=== PATIENT | female | born 1935 | race Caucasian/White ===

== ENCOUNTER → 2017-08-10 | Outpatient (CLI) | payer MEDICARE, OTHER ==
[~2017-08-10] MED LIST: ACET-822 PO; AMLO5TAB2 PO; ATEN100T7 PO; B COTAB PO; BETA0.1O9 TOPICAL; BIOT10TA PO; CLON0.2T PO; CLON0.5T PO; DOCU100T9 PO; ECASA81 PO; GABA300C5 PO; HYDR-3133 PO; HYDR-3799 PO; LACTCAP8 PO; LEVO75TA3 PO; MAGN250T11 PO; MECL12.574 PO; MELA5 PO; MIRA0.25 PO; MULT1TAB61 PO; MUPI2OIN TOPICAL; OLME1TAB PO; PARO20TA2 PO; PROB1CHW4 CHEW; RANI150T PO; SIMV20TA PO; TRAM100T19 PO; TRAM50TA PO; VITA100064 PO; ZOFR4TAB PO
[2017-08-10 10:15] LABS: AUTOMATED NEUTROPHIL # 3.9 TH/MM3 (1.8-7.7); BASOPHIL # 0.1 TH/MM3 (0-0.2); BASOPHIL % 1.1 % (0.0-2.0); EOSINOPHIL # 0.3 TH/MM3 (0-0.4); EOSINOPHIL % 4.1 % (0.0-4.0); HEMATOCRIT 35.1 % (35.0-46.0); HEMOGLOBIN 11.9 GM/DL (11.6-15.3); LYMPH % 24.7 % (9.0-44.0); LYMPHOCYTE # 1.6 TH/MM3 (1.0-4.8); MEAN CELL VOLUME 96.3 FL (80.0-100.0); MEAN CORPUSCULAR HEMOGLOBIN 32.7 PG (27.0-34.0); MEAN PLATELET VOLUME 7.3 FL (7.0-11.0); MONOCYTE # 0.7 TH/MM3 (0-0.9); NEUT % 59.1 % (16.0-70.0); PLATELET COUNT 388 TH/MM3 (150-450); RED BLOOD COUNT 3.65 MIL/MM3 (4.00-5.30); WHITE BLOOD COUNT 6.6 TH/MM3 (4.0-11.0)
[2017-08-10 10:18] LABS: BILIRUBIN, URINE NEG (NEG); BLOOD, URINE NEG (NEG); GLUCOSE,URINE NEG (NEG); KETONE, URINE NEG (NEG); NITRITE,URINE NEG (NEG); PH, URINE 7.5 (5.0-8.5); URINE COLOR YELLOW (YELLW/STRAW); URINE LEUKOCYTE ESTERASE NEG (NEG)
[2017-08-10 10:37] LABS: ALBUMIN 3.6 GM/DL (3.4-5.0); ALT (GPT) 22 U/L (10-53); AST (GOT) 24 U/L (15-37); BICARBONATE 28.5 MEQ/L (21.0-32.0); BLOOD UREA NITROGEN 19 MG/DL (7-18); CALCIUM 9.3 MG/DL (8.5-10.1); CHLORIDE 102 MEQ/L (98-107); GLOMERULAR FILTRATION RATE 39 ML/MIN (>89); GLUCOSE,FASTING 111 MG/DL (74-99); SODIUM (NA) 138 MEQ/L (136-145)
[2017-08-10 10:40] LABS: ALKALINE PHOSPHATASE 70 U/L (45-117); TOTAL BILIRUBIN ADULT 0.4 MG/DL (0.2-1.0); TOTAL PROTEIN 7.3 GM/DL (6.4-8.2)
--- NOTE | 2017-08-10 11:24 | RADRPT ---
EXAM DATE/TIME: 08/10/2017 10:45 [place] COMPARISON: No previous studies available for comparison. INDICATIONS : Evaluate for pneumonia, pneumothorax, and communicable disease. Pre op for rectal surgery. MEDICAL HISTORY : Hypertension. SURGICAL HISTORY : Heart Catheterization. ENCOUNTER: Initial ACUITY: 1 day PAIN SCORE: 0/10 LOCATION: Bilateral chest FINDINGS: PA and lateral views of the chest demonstrate the lungs to be symmetrically aerated without evidence of mass, infiltrate or effusion. There multiple calcified granulomas in both lung [place]. The cardio mediastinal contours are unremarkable. Osseous structures are intact. CONCLUSION: No acute intrathoracic disease. Evidence of previous granulomatous disease. Malik Fofana MD on August 10, 2017 at 11:21 Board Certified Radiologist. This report was verified electronically.
== END ==
LOC: CPRE 09:42 → EDUNIT# 10:00
PROVIDERS: ATTEND Colon & Rectal Surgery
DX: Z01.812 Encounter for preprocedural laboratory examination (principal); Z01.811 Encounter for preprocedural respiratory examination; K62.3 Rectal prolapse
CPT/HCPCS: 36415; 71046; 80053; 81001; 85025; 85610; 85730

== ENCOUNTER → 2017-08-14 | Outpatient (CLI) | payer MEDICARE, OTHER ==
--- NOTE | 2017-08-15 16:16 | EKG ---
Date Performed: 08/14/2017 Time Performed: 12:35:08 PTAGE: 82 years EKG: SINUS BRADYCARDIA WITH SINUS ARRHYTHMIA LOW QRS VOLTAGE IN PRECORDIAL LEADS BORDERLINE ECG NO PREVIOUS TRACING DOCTOR: Leonard Newman Interpretating Date/Time 08/15/2017 16:11:46
== END ==
LOC: CPRE 12:26
PROVIDERS: ATTEND Colon & Rectal Surgery
DX: Z01.810 Encounter for preprocedural cardiovascular examination (principal); K62.3 Rectal prolapse
CPT/HCPCS: 93005

== ENCOUNTER 2017-08-17 11:01 | Inpatient (IN) | payer MEDICARE, OTHER ==
[~2017-08-17] VITALS: Ht 152.4 cm; Wt 68.7 kg
[2017-08-17] MEDS ORDERED: GLYCOPYRROLATE 1 MG/5 ML SYRINGE IV PUSH ONE (12:00)
[2017-08-17] MEDS ORDERED: ONDANSETRON HCL 4 MG/2 ML VIAL IV ONE (12:00)
[2017-08-17] MEDS ORDERED: NORMOSOL R INJ 1,000 ML IV ONE (12:00)
[2017-08-17] MEDS ORDERED: NEOSTIGMINE 5 MG/5 ML SYRINGE IV PUSH ONE (12:00)
[2017-08-17] MEDS ORDERED: DEXAMETHASONE SOD PHOS 4 MG/ML VIAL IV ONE (12:00)
[2017-08-17] MEDS ORDERED: ROCURONIUM INJ 50 MG/5 ML SYRINGE IV PUSH ONE (12:00)
[2017-08-17] MEDS ORDERED: LIDOCAINE HCL 1% PF 5 ML SYRINGE OTHER ONE (12:00)
[2017-08-17] MEDS ORDERED: PHENYLEPHRINE HCL 10 MG/ML VIAL IV ONE (12:00)
[2017-08-17] MEDS ORDERED: hydrALAZINE HCL 20 MG/ML VIAL IV ONE (12:00)
[2017-08-17] MEDS ORDERED: PROPOFOL 200 MG/20 ML AMP IV ONE (12:00)
[2017-08-17] MEDS ORDERED: ePHEDrine/NS 25 MG/5 ML SYRINGE IV ONE (12:00)
[2017-08-17] MEDS ORDERED: PHENYLEPH/NS 1000 MCG/10 ML SYR IV ONE (12:00)
[2017-08-17] MEDS ORDERED: CHLORHEXIDINE GLUCONATE 2 % 1 PACK (2 CLOTHS) TOPICAL PRN (13:00)
[2017-08-17] MEDS ORDERED: LACTATED RINGER'S 1000 ML IV PRN (13:00)
[2017-08-17] MEDS ORDERED: METRONIDAZOLE 500 MG/100 ML ISONTONIC SOLN IV SCH (13:00)
[2017-08-17] MEDS ORDERED: SODIUM CHLORID 0.9% 500 ML IV PRN (13:00)
[2017-08-17] MEDS ORDERED: METOPROLOL TARTRATE 25 MG TAB PO PRN (13:00)
[2017-08-17] MEDS ORDERED: ceFAZolin 1,000 MG/NS 100 ML IV SCH ×2 (13:00)
[2017-08-17] MEDS ORDERED: POVIDONE IODINE 5% (ANTISEPSIS KIT) 4 APPLICATIONS EACH NARE PRN (13:00)
[2017-08-17] MEDS ORDERED: DEXT 5%-NACL 0.9% 1000 ML INJ 1,000 ML IV SCH (13:00)
[2017-08-17] MEDS ORDERED: ACETAMINOPHEN 1000 MG/100 ML 100 ML IV ONE (16:03)
[2017-08-17] MEDS ORDERED: SUGAMMADEX SODIUM 200 MG/2 ML VIAL IV PUSH ONE (16:04)
[2017-08-17] MEDS ORDERED: HYDROmorphone HCL PF 2 MG/ML VIAL ONE (16:04)
[2017-08-17] MEDS ORDERED: ACETAMINOPHEN/HYDROcodone 325 MG/5 MG TAB PO PRN ×2 (18:30)
[2017-08-17] MEDS ORDERED: ZOLPIDEM TARTRATE 5 MG TAB PO PRN (18:30)
[2017-08-17] MEDS ORDERED: Post-op Orders (for Pharmacy) XX ONE (18:30)
[2017-08-17] MEDS ORDERED: MORPHINE SULFATE 30 MG/30 ML PCA IV SCH (18:30)
[2017-08-17] MEDS ORDERED: ACETAMINOPHEN 325 MG TAB PO PRN (18:30)
[2017-08-17] MEDS ORDERED: BENZOCAINE 6 MG/MENTHOL 10 MG LOZENGE BUCCAL PRN (18:30)
[2017-08-17] MEDS ORDERED: BUPIVACAINE HCL PF 0.5% 30 ML VIAL NB SCH (18:30)
[2017-08-17] MEDS ORDERED: NALOXONE HCL 0.4 MG/ML AMP IV PUSH PRN (18:30)
[2017-08-17] MEDS ORDERED: KETOROLAC TROMETHAMINE 30 MG/ML (IVP) VIAL IVP PRN (18:30)
[2017-08-17] MEDS ORDERED: POTASSIUM CHLOR 20 MEQ PREMIX 100 ML IV PRN (18:30)
[2017-08-17] MEDS ORDERED: *ONDANSETRON 4 MG VIAL PERIprocedural Use ONLY ONE (18:36)
[2017-08-17] MEDS ORDERED: *morphine SULFATE 8 MG/ML PERIprocedure ONLY ONE ×2 (18:37→18:44)
[2017-08-17] MEDS ORDERED: LORazepam 2 MG/ML VIAL ONE (18:53)
[2017-08-17] MEDS ORDERED: *MEPERIDINE 25 MG INJ VIAL PERIprocedural Use ONLY ONE (18:56)
[2017-08-17] MEDS ORDERED: LORazepam 2 MG/ML VIAL IV ONE (19:00)
--- NOTE | 2017-08-17 19:02 | MP ---
cc: Colt Montemayor MD DATE OF OPERATION: PREOPERATIVE DIAGNOSIS: Full rectal prolapse. POSTOPERATIVE DIAGNOSIS: Full rectal prolapse. PROCEDURE: Abdominal proctopexy. ANESTHESIA: General endotracheal. SURGEON: Colt Montemayor MD TEAM PHYSICIAN: Jadiel Urban MD ESTIMATED BLOOD LOSS: 150 mL OPERATIVE FINDINGS: This patient was found several weeks ago to have an acute onset of rectal prolapse, which was full. It was able to be reduced, but it continually prolapse and for this reason, repair was recommended. Discussion was had with the patient regarding type of repair and we decided on abdominal proctopexy as we felt it would give her the best outcome. At surgery, abdominal proctopexy was done. She underwent a preoperative colonoscopy on the day prior to surgery, which was normal. OPERATIVE TECHNIQUE: The patient was placed on the table in the supine position. Once adequate general endotracheal anesthesia, the legs were placed in the perineal lithotomy position and the abdomen and perineum were prepped and draped in usual manner. A midline incision was made from the pubis to just above the umbilicus and carried down through the linea alba, and the peritoneal cavity was entered with the above-mentioned findings. Our attention was turned to the sigmoid colon, and it was mobilized along its peritoneal reflection and then, our attention was turned to the lateral pelvic peritoneum, which was incised bilaterally, and then the retrorectal space was entered and the rectum was mobilized posteriorly down to the tip of the coccyx and the pelvic floor. Laterally, the rectum was mobilized as well and the lateral stalks were mobilized. Anteriorly, the cul-de-sac peritoneum was divided, but the cul-de-sac was not entered. The patient has had a previous hysterectomy. Once the rectum was fully mobilized, 0 Prolene sutures were placed in the lateral stalks and sutured to the sacral promontory being careful to stay as wide as possible and the lateral stalks so as not to pinch the rectum upon tying these sutures. Attention was first turned to the right and left sides lower and the 2-0 Prolenes were placed and then the upper 2-0 Prolenes were placed. We tied down the right side first and there was some pinching of the rectum, and the anterior peritoneum over the rectum was incised sharply freeing this up. The left side lower Prolene suture was removed because it seemed to impinge on the rectum too much and the upper one was then tied and all 3 of these sutures were in good position and preventing prolapse. It was felt that that was certainly adequate. Because of the oozing in the retrorectal space and after thorough irrigation, a #10 flat Daniel drain was placed in the pelvis in the retrorectal space and brought out through a separate stab wound in the right lower quadrant. Once the procedure was completed, the abdominal cavity and pelvis, especially, were irrigated with a liter of saline solution, aspirated dry. The bowels were replaced in the abdominal cavity in an food technician manner and then the abdominal cavity was closed in layers using a double-stranded #1 PDS for the midline, linea alba, closing the fascia. Once this was done, the subcutaneous tissue was irrigated thoroughly with saline solution, aspirated dry and the skin was closed with running 3-0 Vicryl subcuticular suture and a dressing was applied. Sponge, needle and instrument counts were reported as correct. Estimated blood loss was 150 mL. The patient tolerated the procedure well and left the operating room in good condition. MD BÁRBARA Maxwell/ANDRA , 06:37 PM , 07:01 PM
[2017-08-17] MEDS ORDERED: LORazepam 2 MG/ML VIAL IV PRN (19:30)
[2017-08-17] MEDS: D5-LR + KCL 20 MEQ INJ 1,000 ML IV SCH (19:45)
[2017-08-17] MEDS ORDERED: DO NOT ADM ANY ANTICOAGULANT DRUGS PRN (20:30)
[2017-08-17 20:39] LABS: AUTOMATED NEUTROPHIL # 13.8 TH/MM3 (1.8-7.7); BASOPHIL # 0.1 TH/MM3 (0-0.2); BASOPHIL % 0.4 % (0.0-2.0); EOSINOPHIL % 0.1 % (0.0-4.0); HEMATOCRIT 31.9 % (35.0-46.0); HEMOGLOBIN 10.9 GM/DL (11.6-15.3); LYMPH % 8.1 % (9.0-44.0); LYMPHOCYTE # 1.3 TH/MM3 (1.0-4.8); MEAN CELL VOLUME 93.9 FL (80.0-100.0); MEAN CORPUSCULAR HGB CONC 34.1 % (32.0-36.0); MEAN PLATELET VOLUME 7.4 FL (7.0-11.0); MONOCYTE # 0.8 TH/MM3 (0-0.9); NEUT % 86.4 % (16.0-70.0); PLATELET COUNT 379 TH/MM3 (150-450); RED BLOOD COUNT 3.39 MIL/MM3 (4.00-5.30); RED CELL DISTRIBUTION WIDTH 11.9 % (11.6-17.2); WHITE BLOOD COUNT 15.9 TH/MM3 (4.0-11.0)
[2017-08-17] MEDS: PARoxetine HCL 20 MG TAB PO SCH (21:00)
[2017-08-17] MEDS: cloNIDine HCL 0.2 MG TAB PO SCH (21:00)
[2017-08-17] MEDS: PRAMIPEXOLE DIHYDROCHLORIDE 0.25 MG TAB PO SCH (21:00)
[2017-08-17] MEDS: FUROSEMIDE 20 MG/2 ML VIAL IV PUSH SCH (21:00)
[2017-08-17 21:11] LABS: BICARBONATE 22.9 MEQ/L (21.0-32.0); CALCIUM 8.3 MG/DL (8.5-10.1); CREATININE 1.23 MG/DL (0.50-1.00)
[2017-08-17 21:19] VITALS: BP 94/39; PULSE 76; RESP 14; TEMP 98.1; O2SAT 96
[2017-08-17 21:30] VITALS: BP 93/46; PULSE 65; RESP 14; TEMP 98.7; O2SAT 93
[2017-08-17 21:31] VITALS: PULSE 73
[2017-08-17] MEDS: PCA - TOTAL MG MORPHINE DELIVERED PER SHIFT SCH (22:00)
[2017-08-17 23:00] VITALS: O2SAT 96
[2017-08-18] VITALS (9 sets, daily range): BP systolic 93–153; BP diastolic 49–71; PULSE 60–76; RESP 16–20; TEMP 97.9–98.8; O2SAT 92–97
[2017-08-18] MEDS: D5-LR + KCL 20 MEQ INJ 1,000 ML IV SCH ×3 (00:59→15:25)
[2017-08-18] MEDS: metroNIDAZOLE 500 MG INJ 100 ML IV SCH ×3 (04:43→15:24)
[2017-08-18] MEDS: METOCLOPRAMIDE HCL 10 MG/2 ML VIAL IVS SCH ×4 (04:43→18:26)
[2017-08-18] MEDS: PCA - TOTAL MG MORPHINE DELIVERED PER SHIFT SCH ×3 (05:04→22:00)
[2017-08-18] MEDS: LEVOTHYROXINE SODIUM 75 MCG TAB PO SCH (06:30)
[2017-08-18 06:54] LABS: BASOPHIL % 0.1 % (0.0-2.0); HEMATOCRIT 30.9 % (35.0-46.0); HEMOGLOBIN 10.4 GM/DL (11.6-15.3); LYMPH % 2.7 % (9.0-44.0); LYMPHOCYTE # 0.3 TH/MM3 (1.0-4.8); MEAN CELL VOLUME 96.6 FL (80.0-100.0); MEAN CORPUSCULAR HEMOGLOBIN 32.5 PG (27.0-34.0); MEAN CORPUSCULAR HGB CONC 33.6 % (32.0-36.0); MEAN PLATELET VOLUME 7.6 FL (7.0-11.0); MONO % 4.7 % (0.0-8.0); MONOCYTE # 0.6 TH/MM3 (0-0.9); NEUT % 92.5 % (16.0-70.0); PLATELET COUNT 328 TH/MM3 (150-450); RED CELL DISTRIBUTION WIDTH 12.7 % (11.6-17.2); WHITE BLOOD COUNT 12.9 TH/MM3 (4.0-11.0)
[2017-08-18 07:23] LABS: BICARBONATE 23.2 MEQ/L (21.0-32.0); CALCIUM 8.2 MG/DL (8.5-10.1); CREATININE 1.85 MG/DL (0.50-1.00)
[2017-08-18] MEDS ORDERED: CHLORTHALIDONE/ATENOLOL 25 MG/100 MG TAB PO SCH (09:00)
[2017-08-18] MEDS: PANTOPRAZOLE SODIUM 40 MG VIAL IVP SCH (09:23)
[2017-08-18] MEDS: GABAPENTIN 300 MG CAP PO SCH ×3 (09:24→18:26)
[2017-08-18] MEDS: PARoxetine HCL 20 MG TAB PO SCH ×2 (09:24→20:44)
[2017-08-18] MEDS: FUROSEMIDE 20 MG/2 ML VIAL IV PUSH SCH ×2 (09:24→20:47)
[2017-08-18] MEDS: MAGNESIUM OXIDE 400 MG TAB PO SCH (09:24)
[2017-08-18] MEDS: PRAVASTATIN SOD 40 MG TAB PO SCH (09:24)
[2017-08-18] MEDS: LOSARTAN 50 MG TAB PO SCH (09:24)
[2017-08-18] MEDS: amLODIPine BESYLATE 5 MG TAB PO SCH (09:24)
[2017-08-18] MEDS: hydrALAZINE HCL 25 MG TAB PO SCH ×3 (09:25→18:26)
[2017-08-18] MEDS: FLUCONAZOLE 200 MG TAB PO SCH (09:25)
[2017-08-18] MEDS: CHLORTHALIDONE 50 MG TAB PO SCH (10:59)
[2017-08-18] MEDS: ATENOLOL 100 MG TAB PO SCH (10:59)
--- NOTE | 2017-08-18 14:22 | HHI.PR ---
Subjective Remarks No N or V. Tolerating CLD. Objective Vital Signs Date Time Temp Pulse Resp B/P (MAP) Pulse Ox O2 Delivery O2 Flow Rate FiO2 08/18/17 11:01 98.6 72 16 130/53 (78) 97 08/18/17 10:29 97 Nasal Cannula 3.00 08/18/17 09:57 98.8 75 17 118/51 (73) 97 08/18/17 07:00 62 08/18/17 05:04 16 08/18/17 04:00 66 16 102/49 (66) 97 08/18/17 04:00 67 08/18/17 00:00 61 08/18/17 00:00 60 16 93/51 (65) 96 08/17/17 23:00 96 Nasal Cannula 3.50 08/17/17 22:00 16 08/17/17 21:31 73 08/17/17 21:30 98.7 65 14 93/46 (62) 93 08/17/17 21:19 98.1 76 14 94/39 (57) 96 08/17/17 21:15 76 16 118/56 (76) 93 Nasal Cannula 4 08/17/17 21:00 72 16 102/50 (67) 95 Nasal Cannula 4 08/17/17 20:45 72 16 120/57 (78) 96 Nasal Cannula 4 08/17/17 20:30 14 08/17/17 20:30 71 16 122/60 (80) 98 Nasal Cannula 4 08/17/17 20:15 75 16 137/63 (87) 99 Nasal Cannula 4 08/17/17 20:00 79 16 142/67 (92) 97 Nasal Cannula 4 08/17/17 19:45 82 16 128/58 (81) 96 Nasal Cannula 4 08/17/17 19:30 77 16 129/58 (81) 93 Nasal Cannula 2 08/17/17 19:15 77 16 110/69 (83) 93 Nasal Cannula 2 08/17/17 19:00 84 16 118/57 (77) 98 Nasal Cannula 2 18 18:45 85 16 135/63 (87) 97 Nasal Cannula 2 08/17/17 18:27 97.8 79 16 179/75 (109) 98 Nasal Cannula 2 I/O 08/17/08/17/17 08/17/17 08/18/1718 4/6/18 07:00 15:00 23:00 07:00 15:00 23:00 Intake Total 1637 ml 2250 ml 1180 ml Output Total 930 ml 125 ml Balance 707 ml 2125 ml 1180 ml Intake IV Total 2250 ml 1180 ml Other 1637 ml Output Urine Total 600 ml 75 ml Drainage Total 180 ml 50 ml Estimated Blood Loss 150 ml Result Diagram: 08/18/17 0455 08/18/17 0455 Objective Remarks VS-S Abd: soft,dressing dry, YOUSUF still bloody Labs and I&Os-OK Assessment and Plan Assessment and Plan Stable POD#1 Decrease IVs, OOB, cut binder. D/C luana tomorrow Colt Montemayor MD Aug 18, 2017 14:22
[2017-08-18] MEDS: hydrOXYzine HCL 25 MG TAB PO PRN (19:37)
[2017-08-18] MEDS: ALVIMOPAN 12 MG CAPSULE PO SCH (20:44)
[2017-08-18] MEDS: cloNIDine HCL 0.2 MG TAB PO SCH (20:52)
[2017-08-18] MEDS: PRAMIPEXOLE DIHYDROCHLORIDE 0.25 MG TAB PO SCH (21:00)
[2017-08-19] VITALS (7 sets, daily range): BP systolic 125–198; BP diastolic 59–92; PULSE 66–90; RESP 16–19; TEMP 97.4–98.3; O2SAT 90–93
[2017-08-19] MEDS: METOCLOPRAMIDE HCL 10 MG/2 ML VIAL IVS SCH ×4 (00:09→18:02)
[2017-08-19] MEDS: ONDANSETRON HCL 4 MG/2 ML VIAL IV PUSH PRN ×2 (00:09→20:18)
[2017-08-19] MEDS: D5-LR + KCL 20 MEQ INJ 1,000 ML IV SCH ×2 (01:30→13:50)
[2017-08-19] MEDS: ENALAPRILAT 1.25 MG/ML VIAL IV PUSH PRN (04:45)
[2017-08-19] MEDS: PCA - TOTAL MG MORPHINE DELIVERED PER SHIFT SCH (06:00)
[2017-08-19] MEDS: LEVOTHYROXINE SODIUM 75 MCG TAB PO SCH (06:29)
[2017-08-19 06:48] LABS: AUTOMATED NEUTROPHIL # 13.4 TH/MM3 (1.8-7.7); EOSINOPHIL % 0.1 % (0.0-4.0); HEMOGLOBIN 9.8 GM/DL (11.6-15.3); LYMPH % 6.4 % (9.0-44.0); MEAN CELL VOLUME 96.6 FL (80.0-100.0); MEAN CORPUSCULAR HEMOGLOBIN 32.7 PG (27.0-34.0); MEAN CORPUSCULAR HGB CONC 33.8 % (32.0-36.0); MEAN PLATELET VOLUME 7.7 FL (7.0-11.0); MONO % 9.4 % (0.0-8.0); MONOCYTE # 1.5 TH/MM3 (0-0.9); NEUT % 84.1 % (16.0-70.0); PLATELET COUNT 295 TH/MM3 (150-450); RED CELL DISTRIBUTION WIDTH 12.5 % (11.6-17.2); WHITE BLOOD COUNT 15.9 TH/MM3 (4.0-11.0)
[2017-08-19 07:06] LABS: BICARBONATE 25.5 MEQ/L (21.0-32.0); CALCIUM 8.1 MG/DL (8.5-10.1); CREATININE 1.44 MG/DL (0.50-1.00)
[2017-08-19] MEDS: FUROSEMIDE 20 MG/2 ML VIAL IV PUSH SCH ×2 (09:11→20:24)
[2017-08-19] MEDS: PANTOPRAZOLE SODIUM 40 MG VIAL IVP SCH (09:12)
[2017-08-19] MEDS: FLUCONAZOLE 200 MG TAB PO SCH (09:13)
[2017-08-19] MEDS: MAGNESIUM OXIDE 400 MG TAB PO SCH (09:13)
[2017-08-19] MEDS: ALVIMOPAN 12 MG CAPSULE PO SCH ×2 (09:13→20:21)
[2017-08-19] MEDS: ATENOLOL 100 MG TAB PO SCH (09:14)
[2017-08-19] MEDS: GABAPENTIN 300 MG CAP PO SCH ×3 (09:14→18:02)
[2017-08-19] MEDS: hydrALAZINE HCL 25 MG TAB PO SCH ×3 (09:14→18:00)
[2017-08-19] MEDS: LOSARTAN 50 MG TAB PO SCH (09:14)
[2017-08-19] MEDS: PRAVASTATIN SOD 40 MG TAB PO SCH (09:14)
[2017-08-19] MEDS: amLODIPine BESYLATE 5 MG TAB PO SCH (09:14)
[2017-08-19] MEDS: PARoxetine HCL 20 MG TAB PO SCH ×2 (09:15→20:21)
--- NOTE | 2017-08-19 10:43 | HHI.PR ---
Subjective Remarks C/R Surg POD #2 afebrile, VSS flex PO UO good Objective - Vital Signs Date Time Temp Pulse Resp B/P (MAP) Pulse Ox O2 Delivery O2 Flow Rate FiO2 08/19/17 08:00 98.2 72 18 153/59 (90) 90 08/18/17 10:29 Nasal Cannula 3.00 Result Diagram: 08/19/17 0529 08/19/17 0529 Objective Remarks PE alert Abd - soft, wound dry, min tympany A/P Assessment and Plan Imp: adv diet decr IVF Fermin Blandon MD Aug 19, 2017 10:43
[2017-08-19] MEDS: CHLORTHALIDONE 50 MG TAB PO SCH (13:34)
[2017-08-19] MEDS: cloNIDine HCL 0.2 MG TAB PO SCH (20:21)
[2017-08-19] MEDS: PRAMIPEXOLE DIHYDROCHLORIDE 0.25 MG TAB PO SCH ×2 (20:21→21:00)
[2017-08-19] MEDS: hydrOXYzine HCL 25 MG TAB PO PRN (21:24)
[2017-08-20] VITALS (7 sets, daily range): BP systolic 173–197; BP diastolic 74–91; PULSE 73–80; RESP 16–18; TEMP 97.4–98.4; O2SAT 92–97
[2017-08-20] MEDS: ENALAPRILAT 1.25 MG/ML VIAL IV PUSH PRN ×3 (00:06→16:59)
[2017-08-20] MEDS: METOCLOPRAMIDE HCL 10 MG/2 ML VIAL IVS SCH ×4 (00:07→16:59)
[2017-08-20] MEDS: LEVOTHYROXINE SODIUM 75 MCG TAB PO SCH (05:59)
[2017-08-20] MEDS: PANTOPRAZOLE SODIUM 40 MG VIAL IVP SCH (10:57)
[2017-08-20] MEDS: CHLORTHALIDONE 50 MG TAB PO SCH (10:58)
[2017-08-20] MEDS: FUROSEMIDE 20 MG/2 ML VIAL IV PUSH SCH (10:58)
[2017-08-20] MEDS: FLUCONAZOLE 200 MG TAB PO SCH (10:58)
[2017-08-20] MEDS: ATENOLOL 100 MG TAB PO SCH (10:59)
[2017-08-20] MEDS: PARoxetine HCL 20 MG TAB PO SCH ×2 (10:59→20:24)
[2017-08-20] MEDS: amLODIPine BESYLATE 5 MG TAB PO SCH (10:59)
[2017-08-20] MEDS: ALVIMOPAN 12 MG CAPSULE PO SCH ×2 (10:59→20:24)
[2017-08-20] MEDS: PRAVASTATIN SOD 40 MG TAB PO SCH (10:59)
[2017-08-20] MEDS: GABAPENTIN 300 MG CAP PO SCH ×3 (10:59→16:59)
[2017-08-20] MEDS: LOSARTAN 50 MG TAB PO SCH (10:59)
[2017-08-20] MEDS: hydrALAZINE HCL 25 MG TAB PO SCH ×3 (10:59→16:59)
--- NOTE | 2017-08-20 11:49 | HHI.PR ---
Subjective Remarks C/R Surg POD #3 afebrile, VSS vomiting all day UO good Objective - Vital Signs Date Time Temp Pulse Resp B/P (MAP) Pulse Ox O2 Delivery O2 Flow Rate FiO2 08/20/17 10:15 97 21 08/20/17 08:00 98.2 78 18 180/84 (116) 08/18/17 10:29 Nasal Cannula 3.00 Result Diagram: 08/19/17 0529 08/19/17 0529 Objective Remarks PE alert Abd - soft, wound dry, min tympany, YOUSUF mod serous A/P Assessment and Plan Imp: adv diet slowly decr IVF OOB dc pain meds Fermin Paz MD Aug 20, 2017 11:49
[2017-08-20 12:48] LABS: HEMATOCRIT 33.7 % (35.0-46.0); HEMOGLOBIN 11.3 GM/DL (11.6-15.3); MEAN CELL VOLUME 96.1 FL (80.0-100.0); MEAN CORPUSCULAR HEMOGLOBIN 32.2 PG (27.0-34.0); MEAN CORPUSCULAR HGB CONC 33.5 % (32.0-36.0); MEAN PLATELET VOLUME 7.8 FL (7.0-11.0); PLATELET COUNT 366 TH/MM3 (150-450); RED BLOOD COUNT 3.51 MIL/MM3 (4.00-5.30); RED CELL DISTRIBUTION WIDTH 12.5 % (11.6-17.2); WHITE BLOOD COUNT 15.1 TH/MM3 (4.0-11.0)
[2017-08-20] MEDS: cloNIDine HCL 0.2 MG TAB PO SCH (20:24)
[2017-08-20] MEDS: PRAMIPEXOLE DIHYDROCHLORIDE 0.25 MG TAB PO SCH (20:25)
[2017-08-20] MEDS: D5-LR + KCL 20 MEQ INJ 1,000 ML IV SCH (21:42)
[2017-08-21] VITALS: BP 187/72; PULSE 72; RESP 20; TEMP 98.1; O2SAT 93
[2017-08-21] MEDS: ENALAPRILAT 1.25 MG/ML VIAL IV PUSH PRN ×2 (01:21→05:25)
[2017-08-21] MEDS: METOCLOPRAMIDE HCL 10 MG/2 ML VIAL IVS SCH ×3 (01:21→12:00)
[2017-08-21 04:00] VITALS: BP 191/85
[2017-08-21] MEDS: LEVOTHYROXINE SODIUM 75 MCG TAB PO SCH (05:22)
[2017-08-21 08:00] VITALS: BP 185/76; PULSE 67; RESP 19; TEMP 97.8; O2SAT 95
[2017-08-21] MEDS: ATENOLOL 100 MG TAB PO SCH (08:04)
[2017-08-21] MEDS: GABAPENTIN 300 MG CAP PO SCH ×2 (08:04→12:47)
[2017-08-21] MEDS: PRAVASTATIN SOD 40 MG TAB PO SCH (08:06)
[2017-08-21] MEDS: amLODIPine BESYLATE 5 MG TAB PO SCH (08:06)
[2017-08-21] MEDS: CHLORTHALIDONE 50 MG TAB PO SCH (08:06)
[2017-08-21] MEDS: PANTOPRAZOLE SODIUM 40 MG VIAL IVP SCH (08:06)
[2017-08-21] MEDS: LOSARTAN 50 MG TAB PO SCH (08:06)
[2017-08-21] MEDS: ALVIMOPAN 12 MG CAPSULE PO SCH (08:06)
[2017-08-21] MEDS: FLUCONAZOLE 200 MG TAB PO SCH (08:06)
[2017-08-21] MEDS: PARoxetine HCL 20 MG TAB PO SCH (08:06)
[2017-08-21] MEDS: hydrALAZINE HCL 25 MG TAB PO SCH ×2 (08:06→12:47)
--- NOTE | 2017-08-21 09:45 | HHI.PR ---
Subjective Remarks No N or V. Tolerating FLD. BMs daily. Objective Vital Signs Date Time Temp Pulse Resp B/P (MAP) Pulse Ox O2 Delivery O2 Flow Rate FiO2 08/21/17 08:00 97.8 67 19 185/76 (112) 95 08/21/17 04:00 191/85 (120) 08/21/17 00:00 98.1 72 20 187/72 (110) 93 08/20/17 20:00 98.4 77 18 173/74 (107) 94 08/20/17 16:00 98.1 74 17 182/78 (112) 96 08/20/17 12:00 97.8 73 17 180/77 (111) 94 08/20/17 10:15 97 21 I/O 08/20/17 08/20/17 08/20/17 08/21/17 08/21/17 08/21/17 06:59 14:59 22:59 06:59 14:59 22:59 Intake Total 638 ml 720 ml 360 ml 120 ml Output Total 680 ml 320 ml 80 ml Balance -42 ml 400 ml 280 ml 120 ml Intake Oral 720 ml 360 ml 120 ml IV Total 638 ml Output Urine Total 300 ml Emesis 240 ml Drainage Total 140 ml 320 ml 80 ml # Voids 2 6 3 # Bowel Movements 2 Result Diagram: 08/20/17 1221 08/19/17 0529 Objective Remarks VS-S Abd: soft,dressing dry, YOUSUF serous-removed by me Labs and I&Os-OK Assessment and Plan Assessment and Plan Stable POD#4 Regular diet. D/C today or tomorrow depending on diet tolerance. F/U with me in 2 weeks Colt Montemayor MD Aug 21, 2017 09:45
--- NOTE | 2017-08-21 09:54 | HHI.DCPOC ---
Discharge Care Plan Diagnosis: (1) Rectal prolapse (2) S/P Abdominal Proctopexy Your Health Problems Are: Anxiety Difficulty with ADL Incision/Drains Appetite Changes Irregular Bowel Function Urinary Difficulties Exercise Tolerance Goals to Promote Your Health * To prevent worsening of your condition and complications * To maintain your health at the optimal level Directions to Meet Your Goals Take your medications as prescribed Follow your dietary instruction Follow activity as directed Keep your appointments as scheduled Take your immunizations and boosters as scheduled If your symptoms worsen call your PCP, if no PCP go to Urgent Care Center or Emergency Room Smoking is Dangerous to Your Health. Avoid second hand smoke Call the 24-hour hour crisis hotline for domestic abuse at Colt Montemayor MD Aug 21, 2017 09:54
[2017-08-21 12:00] VITALS: BP 165/73; PULSE 66; RESP 19; TEMP 98.2; O2SAT 95
[2017-08-21] MEDS: D5-LR + KCL 20 MEQ INJ 1,000 ML IV SCH (12:00)
== END 2017-08-21 15:18 | disposition home or self-care (01) | DRG 331 ==
LOC: HSDI 12:31 → HCIS 21:14 → N07B 08-18 17:54
PROVIDERS: ADMIT Colon & Rectal Surgery; ATTEND Colon & Rectal Surgery
PROC: 0DSP0ZZ Reposition Rectum, Open Approach (ICD-10-PCS; principal; 2017-08-17 16:37)
DX: K62.3 Rectal prolapse (principal); I12.9 Hypertensive chronic kidney disease with stage 1 through stage 4 chronic kidney disease, or unspecified chronic kidney disease; N18.9 Chronic kidney disease, unspecified; F41.9 Anxiety disorder, unspecified; K21.9 Gastro-esophageal reflux disease without esophagitis; M54.9 Dorsalgia, unspecified; G89.29 Other chronic pain; R11.10 Vomiting, unspecified; Z87.891 Personal history of nicotine dependence
CPT/HCPCS: 80048; 85025; 85027; 86850; 86900; 86901; 93005; 94150; C9113; J0131; J0360; J0690; J1100; J1170; J1885; J1940; J2060; J2175; J2270; J2370; J2405; J2710; J2765; J3010; J3480; J7120